=== PATIENT | female | born 1980 | race Hispanic/Latino ===

== ENCOUNTER 2022-12-07 13:31 | Outpatient (CLI) | payer BC | END 2022-12-07 13:32 | disposition home or self-care (01) | LOC: MRI 13:31 | PROVIDERS: ATTEND Internal Medicine Rheumatology | DX: M46.1 Sacroiliitis, not elsewhere classified (principal) | CPT/HCPCS: 72195 ==

== ENCOUNTER 2023-07-14 13:24 | Outpatient (CLI) | payer BC | END 2023-07-14 13:25 | disposition home or self-care (01) | LOC: SCSMRI 13:24 | PROVIDERS: ATTEND Anesthesiology Pain Medicine | DX: M51.26 Other intervertebral disc displacement, lumbar region (principal); M50.11 Cervical disc disorder with radiculopathy, high cervical region; N83.9 Noninflammatory disorder of ovary, fallopian tube and broad ligament, unspecified; M47.816 Spondylosis without myelopathy or radiculopathy, lumbar region; M47.811 Spondylosis without myelopathy or radiculopathy, occipito-atlanto-axial region; M48.02 Spinal stenosis, cervical region; M50.121 Cervical disc disorder at C4-C5 level with radiculopathy; M25.78 Osteophyte, vertebrae; M50.122 Cervical disc disorder at C5-C6 level with radiculopathy; M50.123 Cervical disc disorder at C6-C7 level with radiculopathy | CPT/HCPCS: 72141; 72148 ==